=== PATIENT | female | born 1975 | race Caucasian/White ===

== ENCOUNTER 2020-05-27 01:16 | Emergency (ER) | payer OTHER ==
[~2020-05-27] VITALS: Ht 157.5 cm; Wt 61.2 kg
[2020-05-27 02:19] LABS: URINE BILIRUBIN NEGATIVE (Negative); URINE BLOOD NEGATIVE (Negative); URINE CLARITY CLEAR; URINE COLOR YELLOW; URINE GLUCOSE-RANDOM NEGATIVE (Negative); URINE KETONES NEGATIVE (Negative); URINE LEUKOCYTES-REFLEX NEGATIVE (Negative); URINE NITRITE-REFLEX NEGATIVE (Negative); URINE PROTEIN NEGATIVE (Negative); URINE UROBILINOGEN 0.2 E.U./dl (0.2-1.0)
[2020-05-27] MEDS ORDERED: HYDROCODON-ACE1 EAC8 PO (02:36)
[2020-05-27] MEDS ORDERED: FLEXERIL PO (02:36)
[2020-05-27 02:44] VITALS: BP 168/98
== END 2020-05-27 02:44 | disposition home or self-care (01) ==
LOC: M.ERS 01:16
PROVIDERS: Emergency Medicine
DX: M54.5 Low back pain (principal); R07.81 Pleurodynia; F17.210 Nicotine dependence, cigarettes, uncomplicated